=== PATIENT | male | born 1970 | race Caucasian/White ===

== ENCOUNTER → 2019-02-22 | Day surgery (SDC) | payer BC ==
[~2019-02-22] MED LIST: Bupivacaine 0.25%/EPINEPHrine 1:200,000 30 ML SDV INFILT ONE; Ketamine 500 mg/10 ML MDV ONE; Lactated Ringers 1,000 ML IV SCH; Midazolam 1 MG/ML 2 ML SDV ONE; Ondansetron 4 MG/2 ML SDV ONE; Propofol 200 MG/20 ML SDV ONE; Sodium Chloride 0.9% 10 ML Syringe FLUSH PRN; ceFAZolin 1 GM Vial ONE; fentaNYL 250 MCG/5 ML SDV ONE
--- NOTE | 2019-02-22 08:09 | PCM.PN ---
- General Info Date of Service: 02/22/19 - Review of Systems Systems Review Comment:: 48-year-old male with an umbilical hernia here for surgical repair. He is medically stable to proceed today. His recent history and physical is reviewed and no significant changes are noted. The site is confirmed with the patient and marked. I have again discussed the proposed operative procedure with the patient. Expectations and instructions are reviewed. Questions are addressed. He agrees to proceed accepting risks. - Patient Data Vitals - Most Recent: Last Vital Signs Temp 98.4 F 02/22/19 07:30 Pulse 72 02/22/19 07:30 Resp 18 02/22/19 07:30 BP 138/88 02/22/19 07:30 Pulse Ox 98 02/22/19 07:30 Weight - Most Recent: 102.965 kg Med Orders - Current: Current Medications Lactated Ringer's (Ringers, Lactated) 1,000 mls @ 125 mls/hr IV ASDIRECTED NIYA Last Admin: 02/22/19 07:54 Dose: 125 mls/hr Sodium Chloride (Saline Flush) 10 ml FLUSH ASDIRECTED PRN PRN Reason: Keep Vein Open Discontinued Medications Fentanyl (Sublimaze) Confirm Administered Dose 250 mcg .ROUTE .STK-MED ONE Stop: 02/22/19 07:45 Ketamine HCl (Ketalar) Confirm Administered Dose 500 mg .ROUTE .STK-MED ONE Stop: 02/22/19 07:58 Midazolam HCl (Versed 1 Mg/Ml) Confirm Administered Dose 2 mg .ROUTE .STK-MED ONE Stop: 02/22/19 07:45 Propofol (Diprivan 20 Ml) Confirm Administered Dose 600 mg .ROUTE .STK-MED ONE Stop: 02/22/19 07:45 Sepsis Event Note - Focused Exam Vital Signs: Vital Signs Temp Pulse Resp BP Pulse Ox 02/22/19 07:30 98.4 F 72 18 138/88 98 Date Exam was Performed: 02/22/19 Time Exam was Performed: 08:07 - Problem List Review Problem List Initiated/Reviewed/Updated: Yes - Assessment Assessment:: Umbilical hernia - Plan Plan:: Umbilical Hernia Repair
--- NOTE | 2019-02-22 09:03 | PCM.OPNOTE ---
- General Post-Op/Procedure Note Date of Surgery/Procedure: 02/22/19 Operative Procedure(s): Umbilical hernia repair Findings: Small Umbilical Hernia Pre Op Diagnosis: Umbilical Hernia Post-Op Diagnosis: Same Anesthesia Technique: MAC Other Anesthesia Type: with local Primary Surgeon: Jono Muniz Pathology: none Output, Urine Amount: 0 EBL in mLs: 10 Complications: None Condition: Good
[2019-02-22 09:24] VITALS: BP 140/90; PULSE 82
--- NOTE | 2019-02-22 15:33 | OR ---
Date of Procedure: 02/22/2019 PREOPERATIVE DIAGNOSIS: Umbilical hernia. POSTOPERATIVE DIAGNOSIS: Umbilical hernia. PROCEDURE PERFORMED: Umbilical hernia repair. INDICATIONS FOR SURGERY: This 48-year-old male has developed a bulge at the level of his umbilicus. This is showing slow enlargement and he comes for an elective repair. FINDINGS: The patient has a small hernia at the level of the umbilicus. The fascial edges are strong as is the surrounding fascia. There is preperitoneal fat protruding through the hernia defect, but there was no apparent bowel involvement. DESCRIPTION OF PROCEDURE: The patient was taken to the operating room. He was given IV sedation and his abdomen was sterilely prepped and draped. The periumbilical region was infiltrated with Xylocaine and Marcaine mix. A curvilinear incision was made inferior to the umbilicus. Dissection was proceeded down onto the underlying fascia and the hernia sac was identified and carefully from the surrounding subcutaneous tissue. The skin of the umbilicus was sharply dissected off the hernia sac. The hernia sac itself is debrided off the fascial edge and the hernia contents of preperitoneal fat were reduced back into the abdomen. Once the fascial edge had been clearly identified and debrided to present a clear healing surface, the fascial defect was closed in a transverse orientation with interrupted #1 Prolene in a [place] suturing technique. This created secure closure to the hernia defect and no sign of complication was noted. The wound was irrigated and then closed approximating the skin of the umbilicus down to the underlying fascia with interrupted 4-0 Vicryl. The subcutaneous tissue was re-approximated with interrupted 4-0 Vicryl and the skin was closed with a running 4-0 Vicryl subcuticular stitch. Reinforcing Steri-Strips with benzoin were placed. Antibiotic ointment and a sterile pressure dressing were applied. The patient was then taken from the operating room in satisfactory condition. ESTIMATED BLOOD LOSS: 10 mL. COMPLICATIONS: None. PROGNOSIS: Good. DESTINY Muniz MD /[id number]
== END | disposition home or self-care (01) ==
LOC: LL.SDS 07:16
PROVIDERS: ATTEND Surgery
DX: K42.9 Umbilical hernia without obstruction or gangrene (principal); I10 Essential (primary) hypertension; E66.9 Obesity, unspecified; K21.9 Gastro-esophageal reflux disease without esophagitis; M62.08 Separation of muscle (nontraumatic), other site; Z88.2 Allergy status to sulfonamides; Z88.0 Allergy status to penicillin; Z68.34 Body mass index [BMI] 34.0-34.9, adult; Z79.899 Other long term (current) drug therapy
CPT/HCPCS: J0690; J2001; J2250; J2405; J2704; J3010; J7120

== ENCOUNTER 2022-02-18 09:34 | Day surgery (SDC) | payer BC ==
[~2022-02-18 09:34] MED LIST changes: -Bupivacaine 0.25%/EPINEPHrine 1:200,000 30 ML SDV INFILT ONE; -Ketamine 500 mg/10 ML MDV ONE; -Lactated Ringers 1,000 ML IV SCH; -Ondansetron 4 MG/2 ML SDV ONE; -Sodium Chloride 0.9% 10 ML Syringe FLUSH PRN; -ceFAZolin 1 GM Vial ONE; -fentaNYL 250 MCG/5 ML SDV ONE
[2022-02-18] MEDS ORDERED: Sodium Chloride 0.9% 10 ML Syringe FLUSH PRN (10:15)
[2022-02-18] MEDS: Lactated Ringers 1,000 ML IV SCH (11:30)
[2022-02-18] MEDS ORDERED: Glycopyrrolate 0.2 MG/ML SDV ONE (12:21)
[2022-02-18] MEDS ORDERED: Lidocaine 2% 5 ML SDV ONE (12:21)
[2022-02-18 15:27] VITALS: BP 131/94; PULSE 72
== END 2022-02-18 13:58 | disposition home or self-care (01) ==
LOC: LL.SDS 09:34
PROVIDERS: ATTEND Surgery
DX: Z12.11 Encounter for screening for malignant neoplasm of colon (principal); K21.00 Gastro-esophageal reflux disease with esophagitis, without bleeding; K29.50 Unspecified chronic gastritis without bleeding; K31.7 Polyp of stomach and duodenum; E11.9 Type 2 diabetes mellitus without complications; I10 Essential (primary) hypertension; E78.5 Hyperlipidemia, unspecified; Z86.010 Personal history of colon polyps; Z79.899 Other long term (current) drug therapy; Z88.0 Allergy status to penicillin; Z88.2 Allergy status to sulfonamides; Z88.1 Allergy status to other antibiotic agents; Z98.890 Other specified postprocedural states
CPT/HCPCS: 00813; J2250; J2704; J3490; J7120